=== PATIENT | female | born 1970 | race American Indian/Alaskan Native ===

== ENCOUNTER 2017-09-17 09:22 | Inpatient (IN) | payer MEDICAID ==
[2017-09-17 09:24] VITALS: BMI 23.5
--- NOTE | 2017-09-17 09:33 | C.PDOC ---
History Of Present Illness 47 y/o female brought to ED by EMS transferred from [place] for evaluation on depression and Suicidal ideation. Patient has no plan but has history of 2 suicidal attempts in past. Patient denies homicidal ideation or any other complaints at this time. Time Seen by Provider: 09/17/17 09:33 Chief Complaint (Nursing): Psychiatric Evaluation History Per: Patient, EMS History/Exam Limitations: no limitations Onset/Duration Of Symptoms: Days Current Symptoms Are (Timing): Still Present Suicide/Self Injury Attempted (Context): None Past Medical History Reviewed: Historical Data, Nursing Documentation, Vital Signs Vital Signs: Last Vital Signs Temp 98.1 F 09/18/17 06:32 Pulse 58 L 09/19/17 06:07 Resp 20 09/19/17 06:07 BP 98/54 L 09/19/17 06:07 Pulse Ox 98 09/19/17 06:07 - Medical History PMH: Anemia, Anxiety, Bipolar Disorder, Depression Surgical History: Cholecystectomy - [facility] Procedures MEDICATION MANAGEMENT (07/19/17) Family History: States: No Known Family Hx - Social History Hx Tobacco Use: Yes Hx Alcohol Use: Yes Hx Substance Use: Yes (off heroin/sniff x3 days) - Immunization History Hx Tetanus Toxoid Vaccination: No Hx Influenza Vaccination: No Hx Pneumococcal Vaccination: No Review Of Systems Except As Marked, All Systems Reviewed And Found Negative. Constitutional: Negative for: Fever, Chills Cardiovascular: Negative for: Chest Pain Gastrointestinal: Negative for: Nausea, Vomiting Skin: Negative for: Rash Psych: Positive for: Depression, Suicidal ideation Physical Exam - Physical Exam Appears: Non-toxic, No Acute Distress Skin: Warm, Dry, No Rash Head: Atraumatic, Normacephalic Oral Mucosa: Moist Neck: Normal ROM, Supple Cardiovascular: Rhythm Regular Respiratory: Normal Breath Sounds, No Rales, No Rhonchi, No Wheezing Gastrointestinal/Abdominal: Soft, No Tenderness, No Guarding, No Rebound Extremity: Normal ROM, Capillary Refill (<2 seconds) Neurological/Psych: Oriented x3 ED Course And Treatment O2 Sat by Pulse Oximetry: 98 (RA) Pulse Ox Interpretation: Normal Medical Decision Making Medical Decision Making: Plan: ED 1:1 ordered, Progress: Patient will be admitted to Dr. Riggs for schizoaffective disorder, opiate and cocaine use disorder Disposition - Disposition Disposition: HOSPITALIZED Disposition Time: 09:37 Condition: STABLE - Clinical Impression Clinical Impression: Schizoaffective disorder - Scribe Statement The provider has reviewed the documentation as recorded by the Delanoibasiya Garay All medical record entries made by the Delanoibasiya were at my direction and personally dictated by me. I have reviewed the chart and agree that the record accurately reflects my personal performance of the history, physical exam, medical decision making, and the department course for this patient. I have also personally directed, reviewed, and agree with the discharge instructions and disposition.
--- NOTE | 2017-09-17 10:34 | PCM.PSYCH ---
Initial Psychiatric Evaluation - Initial Psychiatric Evaluation Type of Admission: Voluntary Legal Status: Capacity Chief Complaint (in patient's own words): I was feeling depressed and suicidal.' History of Present Illness and Precipitating Events: Pt is a 47 year old AAF, currently lives alone and unemployed, came to the ED for depressed mood and suicidal ideation. Pt states history of psychiatric admissions at [facility], for depression and suicidal ideation, last discharged 7 months ago. Pt denies any h/o follow up with any psychiatrist after discharged. She denies any previous suicide attempts in the past, but states that the suicidal thoughts were prompted yesterday. Patient also reports of abusing almost 8-10 bags of heroin daily. Yesterday she abused almost 9 bags, became increasingly depressed and developed suicidal ideation so went to the [facility]. Today pt was transferred to the to get help. She reports depressed mood and feelings of hopelessness and worthlessness. She reports withdrawal symptoms from heroin, including nausea, cramps, anxiety, headaches and joint pains. Pt remained isolated and withdrawn in the unit. She denies any HI. She also denies any AVH or any delusions. PMH: HTN Past Psychiatric History - Past Psychiatric History Previous Treatment History: Inpatient Pertinent Medical Hx (Current Medical&Sleep Prob, Allergies): Allergies Allergy/AdvReac Type Severity Reaction Status Date / Time Penicillins AdvReac RASH Verified 09/17/17 00:05 Unobtainable 09/17/17 Review of Systems - Review of Systems All systems: reviewed and no additional remarkable complaints except - Psychiatric Psychiatric: Anxiety, Difficulty Concentrating, Irritability, Suicidal Ideation Mental Status Examination - Personal Presentation Personal Presentation: Looks stated age - Affect Affect: Constricted, Depressed - Motor Activity Motor Activity: Calm - Reliability in Providing Information Reliability in Providing Information: Good - Speech Speech: Organized - Mood Mood: Depressed, Anxious - Formal Thought Process Formal Thought Process: No Impairment - Obsessions/Compulsions Obsessions: No Compulsions: No - Cognitive Functions Orientation: Person, Place, Situation, Time Sensorium: Alert Attention/Concentration: Attentive Abstract Thinking: [place] Estimate of Intelligence: Below average Judgement: Imparied, as evidence by: Poor judgement, Imparied, as evidence by: Lack of insight into illness - Risk Risk: Suicidal, Withdrawal, Diminished functioning - Strength & Assets Inventory Strength & Assets Inventory: Intelligence - Limitations Limitations: Living alone DSM 5 DX - DSM 5 DSM 5 Diagnosis: Major depressive disorder recurrent severe without psychotic features Opioid use disorder severe Opioid withdrawal - Recommended/Plan of Treatment Treatment Recommendations and Plan of Treatment: Major depressive disorder recurrent severe without psychotic features CBT Psychoeducation Supportive therapy, group therapy, individual therapy Paxil 10 mg PO Daily Seroquel 100 mg PO QHS Neurontin 100 mg by mouth 3 times a day Opioid use disorder severe CBT Psychoeducation Supportive therapy, individual therapy Use [place] for abstinence Opioid withdrawal CBT Psychoeducation Supportive therapy, individual therapy Clonidine when necessary Methadone taper - Smoking Cessation Smoking Cessation Initiated: No
--- NOTE | 2017-09-17 13:57 | PCM.BM ---
<Mel Gan - Last Filed: 09/17/17 13:54> Treatment Plan Problems - Problems identified on initial assessmt Depression Date Initiated: 09/17/17 Time Initiated: 10:00 Assessment reference: NA Status: Active Substance Abuse Date Initiated: 09/17/17 Time Initiated: 10:00 Assessment reference: NA Status: Active Treatment assets and liabiliti Patient Assests: adapts well (Chronic, Anemia), cooperative, self-reliant, ADL independent, negotiates basic needs, cognitively intact, good interpersonal skills Patient Liabilities: live alone, financial problems, substance abuse (Heroin) - Milieu Protocol Maintain good personal hygiene: daily Encourage regular showers, daily Remind patient to perform daily oral care, daily Assist patient to perform ADL's (Self) , other Assist patient to perform ADL's Maintain personal safety: every shift Educate patient to report safety concerns to staff, every shift Monitor environment for contraband/sharps Medication safety: Monitor for expected outcome, potential side effects: every shift, Assess barriers to learning: every shift, Assess readiness for medication education: every shift <Dennise Brown - Last Filed: 09/18/17 10:57> - Diagnosis (1) Depression Status: Acute Interventions: 09/18/17 10:58 * Assess/adjust medications daily and /or as needed * See patient on an individual basis 7x/week to assess symptoms of depression * Monitor for side effects & effectiveness of medications * (2) Opioid use disorder, severe, dependence Status: Acute Interventions: 09/18/17 10:58 * Assess 7x/week regarding severity of withdrawal * Educate regarding risks, benefits, side effects and alternatives of medications * Use Motivational Interviewing for abstinence * Use CBT for relapse prevention * Medication management for withdrawal symptoms * Encourage medication assisted treatment * <Mariah León - Last Filed: 09/18/17 11:11> Family Contact Family involvement: Famliy/SO not involved - Goals for Treatment Patient goals for treatment: "I'm interested in rehab." Discharge/Continuing Care - Education Needs Education Needs: Patient Medication, Patient Coping Skills, Patient Placement options, Patient Community resources - Discharge Discharge Criteria: Tolerates medication w/o severe side effects, No longer exhibiting s/s of withdrawal, Reduction of target symptoms Discharge to:: Substance Abuse Rehab - Treatment Team Participation Discussed with Family/SO: No Was Patient/Family/SO present at Treatment Team Meeting: Yes
--- NOTE | 2017-09-18 10:57 | PCM.PYCHPN ---
Psychiatric Progress Note - Psychiatric Progress Note Patient seen today, length of contact: [phone] Patient Chief Complaint: I was feeling depressed and suicidal.' Problems Identified/Issues Discussed: Patient seen and evaluated, chart reviewed and discussed with the nurse. As per the staff, patient still appears isolated, depressed and withdrawn. Patient still reports depressed mood and reports at times feelings of hopelessness or helplessness. She reports withdrawal symptoms including cramps, back pain and sweating. She denies any auditory or visual hallucinations or any psychotic symptoms. She needs some more time for stabilization. She is compliant with her medications and denies any side effects. Supportive therapy and psychoeducation were given. Medication Change: Yes (methadone taper) Medical Record Reviewed: Yes Mental Status Examination - Cognitive Function Orientation: Person, Place, Situation, Time Memory: Intact Attention: WNL Concentration: Poor Association: WNL Fund of Knowledge: Poor - Mood Mood: Depressed, Anxious - Affect Affect: Constricted, Depressed - Speech Speech: Soft - Formal Thought Process Formal Thought Process: No Impairment - Suicidal Ideation Suicidal Ideation: No - Homicidal Ideation Homicidal Ideation: No Goal/Treatment Plan - Goal/Treatment Plan Need for Continued Stay: Severe depression anxiety, Severe functional impairment Progress Toward Problem(s) and Goals/Treatment Plan: Major depressive disorder recurrent severe without psychotic features CBT Psychoeducation Supportive therapy, group therapy, individual therapy Paxil 10 mg PO Daily Seroquel 100 mg PO QHS Neurontin 100 mg by mouth 3 times a day Opioid use disorder severe CBT Psychoeducation Supportive therapy, individual therapy Use [place] for abstinence Opioid withdrawal CBT Psychoeducation Supportive therapy, individual therapy Clonidine when necessary Methadone taper - Smoking Cessation Smoking Cessation Initiated: No
[2017-09-18] MEDS ORDERED: Aluminum Hydroxide/Magnesium Hydroxide Susp (30 mL) PO PRN (11:11)
--- NOTE | 2017-09-19 17:40 | PCM.PYCHPN ---
Psychiatric Progress Note - Psychiatric Progress Note Patient seen today, length of contact: 15 min Medication Change: Yes (methadone taper) Medical Record Reviewed: Yes Mental Status Examination - Cognitive Function Orientation: Person, Place, Situation, Time Memory: Intact Attention: WNL Concentration: Poor Association: WNL Fund of Knowledge: Poor - Mood Mood: Depressed, Anxious - Affect Affect: Constricted, Depressed - Speech Speech: Soft - Formal Thought Process Formal Thought Process: No Impairment - Suicidal Ideation Suicidal Ideation: No - Homicidal Ideation Homicidal Ideation: No Goal/Treatment Plan - Goal/Treatment Plan Need for Continued Stay: Severe depression anxiety, Severe functional impairment
[2017-09-21 06:18] VITALS: BP 99/50; PULSE 79; RESP 20; TEMP 98.3; O2SAT 100
--- NOTE | 2017-09-21 10:10 | PCM.PYCHDC ---
Mental Status Examination - Mental Status Examination Orientation: Person, Place, Situation, Time Memory: Intact Mood: Neutral Affect: Constricted Speech: Soft Attention: WNL Concentration: WNL Association: WNL Fund of Knowledge: WNL Formal Thought Process: No Impairment Description of patient's judgement and insight: GOOD, FAIR Psychotic Thoughts and Behaviors: Denies any AVH Suicidal Ideation: No Current Homicidal Ideation?: No Discharge Summary - Discharge Note Reason for Hospitalization: Pt is a 47 year old AAF, currently lives alone and unemployed, came to the ED for depressed mood and suicidal ideation. Pt states history of psychiatric admissions at [facility], for depression and suicidal ideation, last discharged 7 months ago. Pt denies any h/o follow up with any psychiatrist after discharged. She denies any previous suicide attempts in the past, but states that the suicidal thoughts were prompted yesterday. Patient also reports of abusing almost 8-10 bags of heroin daily. Yesterday she abused almost 9 bags, became increasingly depressed and developed suicidal ideation so went to the [facility]. Today pt was transferred to the to get help. She reports depressed mood and feelings of hopelessness and worthlessness. She reports withdrawal symptoms from heroin, including nausea, cramps, anxiety, headaches and joint pains. Pt remained isolated and withdrawn in the unit. She denies any HI. She also denies any AVH or any delusions. Consultations:: List each consultation separately and include: 1. Reason for request. 2. Findings. 3. Follow-up Summary of Hospital Course include:: 1. Description of specific treatment plan utilized for patients during their course of treatmen. 2. Summarize the time- course for resolution of acute symptoms and/or regressed behaviors. 3. Describe issues identified and worked on during hospitalization. 4. Describe medication utilized. 5. Describe medical problems identified and treated. 6. Reassessment of suicide risk Summary of Hospital Course: Pt is a 47 year old AAF, currently lives alone and unemployed, came to the ED for depressed mood and suicidal ideation. Pt states history of psychiatric admissions at [facility], for depression and suicidal ideation, last discharged 7 months ago. Pt denies any h/o follow up with any psychiatrist after discharged. She denies any previous suicide attempts in the past, but states that the suicidal thoughts were prompted yesterday. Patient also reports of abusing almost 8-10 bags of heroin daily. Yesterday she abused almost 9 bags, became increasingly depressed and developed suicidal ideation so went to the [facility]. Today pt was transferred to the to get help. She reports depressed mood and feelings of hopelessness and worthlessness. She reports withdrawal symptoms from heroin, including nausea, cramps, anxiety, headaches and joint pains. Pt remained isolated and withdrawn in the unit. She denies any HI. She also denies any AVH or any delusions. PMH: HTN - Diagnosis (1) Depression Current Visit: No Status: Acute (2) Opioid use disorder, severe, dependence Current Visit: Yes Status: Acute - Final Diagnosis (DSM 5) Condition upon Discharge: STABLE DSM 5: Major depressive disorder recurrent severe without psychotic features Opioid use disorder severe Opioid withdrawal Disposition: HOME/ ROUTINE Follow-up Treatment Plan: Major depressive disorder recurrent severe without psychotic features CBT Psychoeducation Supportive therapy, group therapy, individual therapy Paxil 10 mg PO Daily Seroquel 100 mg PO QHS Neurontin 100 mg by mouth 3 times a day Opioid use disorder severe CBT Psychoeducation Supportive therapy, individual therapy Use [place] for abstinence Opioid withdrawal CBT Psychoeducation Supportive therapy, individual therapy Clonidine when necessary Methadone taper Prescriptions/Medication Reconciliation: Gabapentin [Neurontin] 300 mg PO BID #60 cap PARoxetine [Paxil] 20 mg PO DAILY #30 tab QUEtiapine [SEROquel] 200 mg PO HS #30 tab traZODone [Desyrel] 100 mg PO HS #30 tab - Smoking Cessation Smoking Cessation Medication prescribed: No
== END 2017-09-21 11:20 | disposition home or self-care (01) | DRG 430 ==
LOC: C.ER 09:22 → C.5E 09:37
PROVIDERS: ADMIT Psychiatry & Neurology Psychiatry; ATTEND Psychiatry & Neurology Psychiatry
PROC: HZ2ZZZZ Detoxification Services for Substance Abuse Treatment (ICD-10-PCS; principal; 2017-09-17)
PROC: HZ52ZZZ Individual Psychotherapy for Substance Abuse Treatment, Cognitive-Behavioral (ICD-10-PCS; 2017-09-17)
PROC: HZ59ZZZ Individual Psychotherapy for Substance Abuse Treatment, Supportive (ICD-10-PCS; 2017-09-17)
PROC: HZ56ZZZ Individual Psychotherapy for Substance Abuse Treatment, Psychoeducation (ICD-10-PCS; 2017-09-17)
PROC: HZ42ZZZ Group Counseling for Substance Abuse Treatment, Cognitive-Behavioral (ICD-10-PCS; 2017-09-17)
PROC: HZ46ZZZ Group Counseling for Substance Abuse Treatment, Psychoeducation (ICD-10-PCS; 2017-09-17)
DX: F33.2 Major depressive disorder, recurrent severe without psychotic features (principal); R45.851 Suicidal ideations; F25.9 Schizoaffective disorder, unspecified; F11.23 Opioid dependence with withdrawal; F14.90 Cocaine use, unspecified, uncomplicated; F17.210 Nicotine dependence, cigarettes, uncomplicated; F41.9 Anxiety disorder, unspecified; I10 Essential (primary) hypertension; Z90.49 Acquired absence of other specified parts of digestive tract

== ENCOUNTER 2017-11-30 01:24 | Inpatient (IN) | payer MEDICAID ==
[2017-11-30 01:25] VITALS: BMI 23.5
--- NOTE | 2017-11-30 01:53 | C.PDOC ---
History Of Present Illness 47 y/o female presents to the ED complaining of feeling suicidal for a few days. No plan. Admits to having auditory and visual hallucinations. Patient stopped taking her psychiatric meds 4 days ago. Patient also states she recently resumed using cocaine and heroin for the first time in 1 year. Denies any physical complaints. Time Seen by Provider: 11/30/17 01:40 Chief Complaint (Nursing): Psychiatric Evaluation History Per: Patient History/Exam Limitations: no limitations Onset/Duration Of Symptoms: Days Current Symptoms Are (Timing): Still Present Associated Symptoms: Suicidal Thoughts Past Medical History Reviewed: Historical Data, Nursing Documentation, Vital Signs Vital Signs: Last Vital Signs Temp 98 F 11/30/17 03:31 Pulse 68 11/30/17 03:31 Resp 18 11/30/17 03:31 BP 102/59 L 11/30/17 03:31 Pulse Ox 100 11/30/17 03:31 - Medical History PMH: Anemia, Anxiety, Asthma, Bipolar Disorder, Depression Denies: Diabetes, HIV, HTN, Hypercholesterolemia, Hypothyroidism Surgical History: Cholecystectomy Denies: CABG, Pacemaker - [facility] Procedures DETOXIFICATION SERVICES FOR SUBSTANCE ABUSE TREATMENT (09/17/17) GROUP PRODUCTION SAMPLER FOR SUBSTANCE ABUSE TREATMENT, PSYCHOEDUCATION (09/17/17) GROUP PRODUCTION SAMPLER FOR SUBSTANCE ABUSE, COGNITIVE BEHAVIORAL (09/17/17) INDIV PSYCHOTHERAPY FOR SUBSTANCE ABUSE TREATMENT, SUPPORT (09/17/17) INDIV PSYCHOTHERAPY FOR SUBSTANCE ABUSE, COGNITIV BEHAVIORAL (09/17/17) INDIV PSYCHOTHERAPY FOR SUBSTANCE ABUSE, PSYCHOEDUCATION (09/17/17) INTRODUCTION OF ANTI-INFLAMMATORY INTO JOINTS, PERC APPROACH (10/11/17) INTRODUCTION OF LOCAL ANESTHETIC INTO JOINTS, PERC APPROACH (10/11/17) MEDICATION MANAGEMENT (07/19/17) Family History: States: Unknown Family Hx - Social History Hx Tobacco Use: Yes Hx Alcohol Use: Yes Hx Substance Use: Yes - Immunization History Hx Tetanus Toxoid Vaccination: No Hx Influenza Vaccination: Yes Hx Pneumococcal Vaccination: No Review Of Systems Cardiovascular: Negative for: Chest Pain Respiratory: Negative for: Shortness of Breath Gastrointestinal: Negative for: Vomiting Psych: Positive for: Suicidal ideation (with no plan), Other (substance abuse, auditory and visual hallucinations) Physical Exam - Physical Exam Appears: No Acute Distress Skin: No Rash Head: Atraumatic, Normacephalic Eye(s): bilateral: PERRL, EOMI Oral Mucosa: Moist Neck: Supple Chest: No Tenderness Cardiovascular: Rhythm Regular, No Murmur Respiratory: No Rales, No Rhonchi, No Wheezing, Other (Lungs clear to auscultation) Gastrointestinal/Abdominal: Soft, No Tenderness, No Distention Back: No CVA Tenderness Extremity: No Calf Tenderness, No Swelling Neurological/Psych: Other (Awake and alert, poor eye contact) ED Course And Treatment - Laboratory Results Result Diagrams: 11/30/17 02:04 11/30/17 02:04 Medical Decision Making Medical Decision Making: Time: 1:40 Initial Plan: * Urine drug screen * Alcohol serum * CMP * CBC * Accucheck * Urinalysis * Placed on 1:1 observation * Pending crisis evaluation 32 am pt is medically cleared for psychiatric evaluation/admission. pt with mildly elevated ast and alt. recommend repeat and get hep profile. Disposition Discussed With : Dennise Brown Doctor Will See Patient In The: Hospital - Disposition Referrals: Non [facility] Provider, [Primary Care Provider] - Disposition: HOSPITALIZED Disposition Time: 03:33 Condition: FAIR Forms: [employer] (Hungarian) - Clinical Impression Clinical Impression: Major depressive disorder, recurrent, Opioid use disorder, moderate, dependence , Cocaine use disorder, moderate, dependence - PA / BROKE BEATER / Resident Statement MD/DO has reviewed & agrees with the documentation as recorded. - Scribe Statement The provider has reviewed the documentation as recorded by the Scribe (Amelia Clark) All medical record entries made by the Scribe were at my direction and personally dictated by me. I have reviewed the chart and agree that the record accurately reflects my personal performance of the history, physical exam, medical decision making, and the department course for this patient. I have also personally directed, reviewed, and agree with the discharge instructions and disposition.
[2017-11-30 01:57] LABS: HCG,QUALITATIVE URINE NEGATIVE (NEGATIVE); SQUAMOUS EPITHIAL 10 /hpf (0-5); URINE BILIRUBIN NEGATIVE (NEGATIVE); URINE BLOOD NEGATIVE (NEGATIVE); URINE CLARITY Hazy (Clear); URINE COLOR Yellow (YELLOW); URINE GLUCOSE (UA) NORMAL (Normal); URINE HYALINE CAST 0-2 /lpf (0-2); URINE LEUKOCYTE ESTERASE NEG Leu/uL (Negative); URINE PROTEIN 1+ mg/dL (NEGATIVE)
[2017-11-30 02:20] LABS: BASO % 0.6 % (0.0-2.0); EOS # 0.1 K/uL (0.0-0.7); EOS % 0.9 % (0.0-4.0); HEMOGLOBIN 12.2 g/dL (11.0-16.0); LYMPH # 1.7 K/uL (1.0-4.3); LYMPH % 25.2 % (20.0-40.0); MEAN CELL VOLUME 87.9 fL (81.0-99.0); MEAN CORPUSCULAR HEMOGLOBIN 30.4 pg (27.0-31.0); MEAN CORPUSCULAR HGB CONC 34.6 g/dL (33.0-37.0); MEAN PLATELET VOLUME 8.9 fL (7.2-11.7); MONO # 0.6 K/uL (0.0-0.8); MONO % 8.7 % (0.0-10.0); NEUT # 4.3 K/uL (1.8-7.0); NEUT % 64.6 % (50.0-75.0); RBC 4.02 Mil/uL (3.80-5.20); RED CELL DISTRIBUTION WIDTH 15.1 % (11.5-14.5); WHITE BLOOD COUNT 6.6 K/uL (4.8-10.8)
[2017-11-30 02:26] LABS: ALB/GLOB RATIO 1.1 (1.0-2.1); ALBUMIN 4.2 g/dL (3.5-5.0); ALT/SGPT 163 U/L (9-52); AST/SGOT 166 U/L (14-36); BLOOD UREA NITROGEN 11 mg/dL (7-17); CALCIUM 9.3 mg/dl (8.6-10.4); GFR AFRICAN-AMERICAN > 60; GFR NON-AFRICAN AMERICAN > 60
[2017-11-30 02:35] LABS: BARBITURATES, UR NEGATIVE (NEGATIVE); PHENCYCLIDINE, UR NEGATIVE (NEGATIVE)
[2017-11-30 02:39] LABS: BENZODIAZEPINES, UR POSITIVE (NEGATIVE); OPIATES, UR POSITIVE (NEGATIVE)
[2017-11-30] MEDS ORDERED: Potassium Chloride 20 mEq ER Tab PO ONE ×2 (02:56)
--- NOTE | 2017-11-30 05:12 | PCM.BM ---
<Yessi Bourne - Last Filed: 11/30/17 05:10> Treatment Plan Problems - Problems identified on initial assessmt Depression Date Initiated: 11/30/17 Time Initiated: 03:50 Assessment reference: NA Status: Active Suicidal ideation Date Initiated: 11/30/17 Time Initiated: 03:50 Assessment reference: NA Status: Monitor Treatment assets and liabiliti Patient Assests: adapts well (Chronic, Anemia), cooperative, self-reliant, ADL independent, negotiates basic needs, cognitively intact, good interpersonal skills Patient Liabilities: poor support system, substance abuse (Heroin, cocaine, benzo), medical problems (Anemia) - Milieu Protocol Maintain good personal hygiene: daily Encourage regular showers, daily Remind patient to perform daily oral care, every shift Assist patient to perform ADL's Conduct patient checks and document Observation sheet: Q15 minutes Maintain personal safety: every shift Educate patient to report safety concerns to staff, every shift Monitor environment for contraband/sharps Medication safety: Monitor for expected outcome, potential side effects: every shift, Assess barriers to learning: every shift, Assess readiness for medication education: every shift <Sheree Trejo - Last Filed: 11/30/17 12:31> - Diagnosis (1) Opioid use disorder, severe, dependence Status: Acute Interventions: 11/30/17 12:31 * Assess 7x/week regarding severity of withdrawal * Educate regarding risks, benefits, side effects and alternatives of medications * Use Motivational Interviewing for abstinence * Use CBT for relapse prevention * Medication management for withdrawal symptoms * Encourage medication assisted treatment * (2) Schizoaffective disorder Status: Chronic Interventions: 11/30/17 12:31 * Assess/adjust medications daily and /or as needed * See patient on an individual basis 7x/week to assess status of hallucinations * Discuss risks, benefits, side effects and alternatives of medications * <Melisa Art - Last Filed: 11/30/17 12:36> Family Contact Family involvement: Patient does not wish Family/SO involvement Family contact: Patient declines to allow family contact at present - Goals for Treatment Patient goals for treatment: " I am going through withdrawals and I want to stop using drugs". Discharge/Continuing Care - Education Needs Education Needs: Patient Medication, Patient Diagnosis/Disease Process, Patient Coping Skills, Patient Aftercare Safety Plan - Discharge Discharge Criteria: Free of Suicidal thoughts, Ability to care for self, No longer exhibiting s/s of withdrawal, Reduction of target symptoms Discharge to:: [facility]
[2017-11-30 06:52] VITALS: O2SAT 95
[2017-11-30] MEDS ORDERED: Potassium Chloride 20 mEq ER Tab PO SCH (10:00)
[2017-11-30] MEDS: Multiple Vitamins Tab PO SCH (13:45)
--- NOTE | 2017-11-30 14:02 | PCM.PSYCH ---
Initial Psychiatric Evaluation - Initial Psychiatric Evaluation Type of Admission: Voluntary Legal Status: Capacity Chief Complaint (in patient's own words): "I was feeling depressed and suicidal." History of Present Illness and Precipitating Events: Patient is seen, chart reviewed, case discussed. This is a 47 year old AA female, currently lives alone and is unemployed, came to the ED for feeling depressed and suicidal ideation. Patient states she has been feeling this way for the past week. Patient states she has not taken her medication for about a week. Patient states she has been hearing the voice of her grandmother, telling her to come join her. Patient denies any recent attempt of suicide. Patient denies feelings of paranoia. Patient states she has a past history of heroin use and recently relapsed on Thursday11/27/2017 despite completing a detox recently. Patient was using 5-6 bags of heroin per day. She states she currently has symptoms of withdrawal. She was also using 2-3 mg klonopin a day. Denies heavy alcohol use but she has elevated LFTs Patient has history of previous psychiatric admissions in the past at [facility] and [facility] for depression and suicidal ideation. Patient was last discharged 10/23/2017. Patient states she has attempted suicide in the past , twice in 2016, but denies any recent attempts Past psych history: Opiod use d/o, Schizoaffective d/o, Major Depressive Disorder, recurrent Medical history: denies Family History: denies Current Medications: Active Medications Generic Name Dose Route Start Last Admin Trade Name Freq PRN Reason Stop Dose Admin Aripiprazole 5 mg 11/30/17 18:00 Abilify PO QPM JOAQUÍN Clonidine HCl 0.1 mg 11/30/17 12:33 Catapres PO Q4H PRN Symptoms of alcohol withdrawl Folic Acid 1 mg 11/30/17 12:45 11/30/17 13:45 Folic Acid PO 1 mg DAILY JOAQUÍN Administration Gabapentin 300 mg 11/30/17 14:00 11/30/17 13:33 Neurontin PO 300 mg TID JOAQUÍN Administration Hydroxyzine HCl 25 mg 11/30/17 12:28 Atarax PO Q4H PRN Anxiety Ibuprofen 600 mg 11/30/17 12:28 Motrin Tab PO Q6H PRN Pain, moderate (4-7) Lorazepam 1 mg 11/30/17 14:00 11/30/17 13:33 Ativan PO 12/05/17 13:59 1 mg .TAPER JOAQUÍN Administration Taper Multivitamins 1 tab 11/30/17 12:45 11/30/17 13:45 Hexavitamin PO 1 tab DAILY JOAQUÍN Administration Pneumococcal Polyvalent Vaccine 0.5 ml 12/02/17 10:00 Pneumovax 23 Vaccine IM 12/02/17 10:01 .ONCE ONE Thiamine HCl 100 mg 11/30/17 12:45 11/30/17 13:33 Vitamin B1 Tab PO 100 mg DAILY JOAQUÍN Administration Trazodone HCl 50 mg 11/30/17 12:28 Desyrel PO HS PRN Insomnia Past Psychiatric History - Past Psychiatric History Previous Treatment History: Inpatient At [facility] hospital: [facility] Nature of Treatment: Depression, Sucidial Ideation History of ETOH/Drug Use: Opiod Use d/o History of Family Illness: Denies Pertinent Medical Hx (Current Medical&Sleep Prob, Allergies): Allergies Allergy/AdvReac Type Severity Reaction Status Date / Time Penicillins AdvReac RASH Verified 11/30/17 01:32 Docusate [Colace] 100 mg PO BID #14 cap 10/22/17 Gabapentin [Neurontin] 600 mg PO TID #45 tab 10/22/17 QUEtiapine [Seroquel] 300 mg PO AMHS #30 tab 10/22/17 traZODone [Desyrel] 200 mg PO HS #30 tab 10/22/17 Review of Systems - Review of Systems All systems: reviewed and no additional remarkable complaints except - Psychiatric Psychiatric: Auditory Hallucinations, Depression, Hopelessness, Suicidal Ideation. absent: Paranoia Mental Status Examination - Personal Presentation Personal Presentation: Looks stated age - Affect Affect: Flat - Motor Activity Motor Activity: Calm - Reliability in Providing Information Reliability in Providing Information: Fair - Speech Speech: Organized - Mood Mood: Depressed - Formal Thought Process Formal Thought Process: No Impairment - Obsessions/Compulsions Obsessions: No Compulsions: No - Cognitive Functions Orientation: Person, Place, Situation Sensorium: Alert - Risk Risk: Suicidal, Withdrawal - Limitations Limitations: Living alone DSM 5 DX - DSM 5 DSM 5 Diagnosis: Schizoaffective d/o - depressed Opiod Use d/o, severe Opioid withdrawal Cocaine use d/o - severe r/o Benzo (or alcohol) use d/o - Recommended/Plan of Treatment Treatment Recommendations and Plan of Treatment: Start Abilify 5mg for psychosis Lexapro for depression Hold seroquel Gabapentin Ok for anxiety Methadone detox Short low dose ativan detox All risks, benefits, and alternatives of the meds discussed, and the pt agreed and understood. Attend groups and activities Individual therapy daily Psychoeducation and support daily Encourage compliance with meds and after care Refer to outpatient program Teach healthy lifestyle methods, i.e. diet, exercise, meditation Smoking cessation and patch 32 min Projected ELOS: 7 days - Smoking Cessation Smoking Cessation Initiated: Yes
[2017-11-30 14:24] LABS: ALB/GLOB RATIO 1.1 (1.0-2.1); ALBUMIN 3.8 g/dL (3.5-5.0); ALT/SGPT 123 U/L (9-52); AST/SGOT 108 U/L (14-36); BLOOD UREA NITROGEN 11 mg/dL (7-17); GFR AFRICAN-AMERICAN > 60; GFR NON-AFRICAN AMERICAN > 60
[2017-11-30 15:14] LABS: HEPATITIS B SURFACE AG Negative (NEGATIVE)
[2017-11-30 15:20] LABS: HEPATITIS A IGM NEGATIVE (NEGATIVE); HEPATITIS B CORE AB NEGATIVE (NEGATIVE)
[2017-11-30 15:24] LABS: HEPATITIS C ANTIBODY NEGATIVE (NEGATIVE)
[2017-12-01] MEDS: Multiple Vitamins Tab PO SCH (10:06)
--- NOTE | 2017-12-01 13:56 | PCM.PYCHPN ---
Psychiatric Progress Note - Psychiatric Progress Note Patient seen today, length of contact: 17 minutes Patient Chief Complaint: "I am not well" Problems Identified/Issues Discussed: The patient is seen, chart reviewed, case discussed with staff. Support given, CBT and CA used briefly. Patient states she is still not sleeping well. No new symptoms reported, improving slowly and needs more time. No side effects from medications, risk discussed. After care discussed. Medication Change: Yes (sero) Medical Record Reviewed: Yes Mental Status Examination - Cognitive Function Orientation: Person, Place, Situation, Time Memory: Intact Attention: Poor Concentration: Poor Association: WNL Fund of Knowledge: Poor - Mood Mood: Depressed - Affect Affect: Flat - Speech Speech: Appropriate - Formal Thought Process Formal Thought Process: No Impairment - Suicidal Ideation Suicidal Ideation: No - Homicidal Ideation Homicidal Ideation: No Goal/Treatment Plan - Goal/Treatment Plan Need for Continued Stay: Discharge may exacerbated symptoms, Severe functional impairment Progress Toward Problem(s) and Goals/Treatment Plan: Abilify 5mg for psychosis Lexapro for depression Hold seroquel Gabapentin Ok for anxiety Methadone detox Short low dose ativan detox All risks, benefits, and alternatives of the meds discussed, and the pt agreed and understood. Attend groups and activities Individual therapy daily Psychoeducation and support daily Encourage compliance with meds and after care Refer to outpatient program Teach healthy lifestyle methods, i.e. diet, exercise, meditation Smoking cessation and patch
[2017-12-02] MEDS ORDERED: Pneumococcal 23-Valent Vaccine IM ONE (10:00)
[2017-12-02] MEDS: Multiple Vitamins Tab PO SCH (10:16)
--- NOTE | 2017-12-02 14:25 | PCM.PYCHPN ---
Psychiatric Progress Note - Psychiatric Progress Note Patient seen today, length of contact: 16 min Patient Chief Complaint: "I am not sleeping well" Problems Identified/Issues Discussed: The patient is seen, chart reviewed, case discussed with staff. Patient states she is still not sleeping well. Her mood has improved. Support given, CBT and [place] used briefly. Patient states she is still not sleeping well. No new symptoms reported, improving slowly and needs more time. No side effects from medications, risk discussed. After care discussed. Methadone main. recommended and she agreed Medication Change: Yes Medical Record Reviewed: Yes Mental Status Examination - Cognitive Function Orientation: Person, Place, Situation Memory: Impaired Attention: Poor Concentration: Poor Association: WNL Fund of Knowledge: Poor - Mood Mood: Depressed - Affect Affect: Blunted - Speech Speech: Appropriate - Formal Thought Process Formal Thought Process: No Impairment - Suicidal Ideation Suicidal Ideation: No - Homicidal Ideation Homicidal Ideation: No Goal/Treatment Plan - Goal/Treatment Plan Need for Continued Stay: Discharge may exacerbated symptoms, Severe functional impairment Progress Toward Problem(s) and Goals/Treatment Plan: Continue medications Support and psychoeducation daily Attend groups and activities daily After care planning by POPPY
[2017-12-03 06:26] VITALS: RESP 20; TEMP 98.3
[2017-12-03] MEDS: Multiple Vitamins Tab PO SCH (09:49)
[2017-12-03 10:22] VITALS: BP 118/70; PULSE 81
--- NOTE | 2017-12-03 10:45 | PCM.PYCHDC ---
Mental Status Examination - Mental Status Examination Orientation: Person, Place, Situation, Time Memory: Intact Mood: Neutral Affect: Constricted Speech: Soft Attention: WNL Concentration: WNL Association: WNL Fund of Knowledge: WNL Formal Thought Process: No Impairment Description of patient's judgement and insight: good, fair Psychotic Thoughts and Behaviors: denies any AVH Suicidal Ideation: No Current Homicidal Ideation?: No Discharge Summary - Discharge Note Reason for Hospitalization: This is a 47 year old AA female, currently lives alone and is unemployed, came to the ED for feeling depressed and suicidal ideation. Patient states she has been feeling this way for the past week. Patient states she has not taken her medication for about a week. Patient states she has been hearing the voice of her grandmother, telling her to come join her. Patient denies any recent attempt of suicide. Patient denies feelings of paranoia. Patient states she has a past history of heroin use and recently relapsed on Thursday11/27/2017 despite completing a detox recently. Patient was using 5-6 bags of heroin per day. She states she currently has symptoms of withdrawal. She was also using 2-3 mg klonopin a day. Denies heavy alcohol use but she has elevated LFTs Patient has history of previous psychiatric admissions in the past at [facility] and [facility] for depression and suicidal ideation. Patient was last discharged 10/23/2017. Patient states she has attempted suicide in the past , twice in 2016, but denies any recent attempts Past psych history: Opiod use d/o, Schizoaffective d/o, Major Depressive Disorder, recurrent Medical history: denies Family History: denies Psychiatric History (includes Medical, Family, Personal Hx): Depression, Sucidial Ideation Consultations:: List each consultation separately and include: 1. Reason for request. 2. Findings. 3. Follow-up Summary of Hospital Course include:: 1. Description of specific treatment plan utilized for patients during their course of treatmen. 2. Summarize the time- course for resolution of acute symptoms and/or regressed behaviors. 3. Describe issues identified and worked on during hospitalization. 4. Describe medication utilized. 5. Describe medical problems identified and treated. 6. Reassessment of suicide risk - Final Diagnosis (DSM 5) Condition upon Discharge: FAIR DSM 5: Schizoaffective d/o - depressed Opiod Use d/o, severe Opioid withdrawal Cocaine use d/o - severe r/o Benzo (or alcohol) use d/o Disposition: HOME/ ROUTINE Prescriptions/Medication Reconciliation: ARIPiprazole [Abilify] 10 mg PO QPM #30 tab FLUoxetine [Prozac] 20 mg PO DAILY #30 cap Gabapentin [Neurontin] 300 mg PO TID #90 cap QUEtiapine [Seroquel] 100 mg PO HS #30 tab traZODone [Desyrel] 100 mg PO HS PRN #30 tab PRN Reason: Insomnia
== END 2017-12-03 11:00 | disposition home or self-care (01) | DRG 430 ==
LOC: C.ER 01:24 → SUPCPDRO 01:24 → C.5E 03:30
PROVIDERS: ADMIT Psychiatry & Neurology Psychiatry; ATTEND Psychiatry & Neurology Psychiatry
PROC: GZHZZZZ Group Psychotherapy (ICD-10-PCS; principal; 2017-11-30)
PROC: HZ52ZZZ Individual Psychotherapy for Substance Abuse Treatment, Cognitive-Behavioral (ICD-10-PCS; 2017-11-30)
PROC: GZ58ZZZ Individual Psychotherapy, Cognitive-Behavioral (ICD-10-PCS; 2017-11-30)
PROC: GZ56ZZZ Individual Psychotherapy, Supportive (ICD-10-PCS; 2017-11-30)
PROC: HZ2ZZZZ Detoxification Services for Substance Abuse Treatment (ICD-10-PCS; 2017-11-30)
PROC: HZ59ZZZ Individual Psychotherapy for Substance Abuse Treatment, Supportive (ICD-10-PCS; 2017-11-30)
PROC: HZ56ZZZ Individual Psychotherapy for Substance Abuse Treatment, Psychoeducation (ICD-10-PCS; 2017-11-30)
PROC: HZ42ZZZ Group Counseling for Substance Abuse Treatment, Cognitive-Behavioral (ICD-10-PCS; 2017-11-30)
PROC: HZ46ZZZ Group Counseling for Substance Abuse Treatment, Psychoeducation (ICD-10-PCS; 2017-11-30)
DX: F25.1 Schizoaffective disorder, depressive type (principal); F11.23 Opioid dependence with withdrawal; F14.20 Cocaine dependence, uncomplicated; F41.9 Anxiety disorder, unspecified; J45.909 Unspecified asthma, uncomplicated; R45.851 Suicidal ideations; F17.210 Nicotine dependence, cigarettes, uncomplicated; Z88.0 Allergy status to penicillin

== ENCOUNTER 2018-02-07 22:44 | Inpatient (IN) | payer MEDICAID ==
[2018-02-07 22:44] VITALS: BMI 25.0
[2018-02-07 23:17] LABS: BASO # 0.1 K/uL (0.0-0.2); BASO % 0.9 % (0.0-2.0); EOS # 0.3 K/uL (0.0-0.7); EOS % 3.7 % (0.0-4.0); HEMOGLOBIN 12.4 g/dL (11.0-16.0); LYMPH # 2.6 K/uL (1.0-4.3); LYMPH % 33.6 % (20.0-40.0); MEAN CORPUSCULAR HEMOGLOBIN 30.7 pg (27.0-31.0); MEAN CORPUSCULAR HGB CONC 34.1 g/dL (33.0-37.0); MONO # 0.9 K/uL (0.0-0.8); MONO % 11.5 % (0.0-10.0); NEUT # 3.9 K/uL (1.8-7.0); NEUT % 50.3 % (50.0-75.0); NRBC % 0.1 % (0.0-2.0); RBC 4.03 Mil/uL (3.80-5.20); RED CELL DISTRIBUTION WIDTH 15.1 % (11.5-14.5); WHITE BLOOD COUNT 7.7 K/uL (4.8-10.8)
[2018-02-07 23:22] LABS: HCG,QUALITATIVE URINE NEGATIVE (NEGATIVE); SQUAMOUS EPITHIAL 4 /hpf (0-5); URINE BACTERIA OCC (<OCC); URINE BILIRUBIN NEGATIVE (NEGATIVE); URINE BLOOD NEGATIVE (NEGATIVE); URINE CLARITY Hazy (Clear); URINE COLOR Amber (YELLOW); URINE GLUCOSE (UA) NORMAL (Normal); URINE LEUKOCYTE ESTERASE NEG Leu/uL (Negative); URINE PROTEIN 1+ mg/dL (NEGATIVE)
[2018-02-07 23:23] LABS: BARBITURATES, UR NEGATIVE (NEGATIVE); PHENCYCLIDINE, UR NEGATIVE (NEGATIVE)
[2018-02-07 23:25] LABS: ALB/GLOB RATIO 1.1 (1.0-2.1); ALBUMIN 4.3 g/dL (3.5-5.0); ALT/SGPT 45 U/L (9-52); AST/SGOT 55 U/L (14-36); BLOOD UREA NITROGEN 13 mg/dL (7-17); CALCIUM 9.3 mg/dl (8.6-10.4); GFR AFRICAN-AMERICAN > 60; GFR NON-AFRICAN AMERICAN > 60
[2018-02-07 23:25] LABS: BENZODIAZEPINES, UR POSITIVE (NEGATIVE); OPIATES, UR POSITIVE (NEGATIVE)
--- NOTE | 2018-02-07 23:33 | C.PDOC ---
History Of Present Illness 47 year old female presents to the ER with a complaint of feeling depressed, suicidal, and hearing voices. Patient also notes she uses heroin and ETOH, last use was today. Denies any medical complaints at this time. Time Seen by Provider: 02/07/18 22:51 Chief Complaint (Nursing): Psychiatric Evaluation History Per: Patient History/Exam Limitations: no limitations Onset/Duration Of Symptoms: Hrs Current Symptoms Are (Timing): Still Present Suicide/Self Injury Attempted (Context): None Modifying Factor(s): Alcohol, Other (Heroin) Associated Symptoms: Depression, Suicidal Thoughts, Other (Hearing voices) Involuntary Hold By: None Recent travel outside of the [place]: No Past Medical History Reviewed: Historical Data, Nursing Documentation, Vital Signs Vital Signs: Last Vital Signs Temp 98.5 F 02/07/18 22:47 Pulse 94 H 02/07/18 22:47 Resp 18 02/07/18 22:47 BP 123/82 02/07/18 22:47 Pulse Ox 97 02/08/18 00:18 - Medical History PMH: Anemia, Anxiety, Asthma, Bipolar Disorder, Depression, HTN Surgical History: Cholecystectomy - [facility] Procedures DETOXIFICATION SERVICES FOR SUBSTANCE ABUSE TREATMENT (11/30/17) GROUP CONDITIONING COACH FOR SUBSTANCE ABUSE TREATMENT, PSYCHOEDUCATION (11/30/17) GROUP CONDITIONING COACH FOR SUBSTANCE ABUSE, COGNITIVE BEHAVIORAL (11/30/17) GROUP PSYCHOTHERAPY (01/26/18) INDIV PSYCHOTHERAPY FOR SUBSTANCE ABUSE TREATMENT, SUPPORT (11/30/17) INDIV PSYCHOTHERAPY FOR SUBSTANCE ABUSE, COGNITIV BEHAVIORAL (11/30/17) INDIV PSYCHOTHERAPY FOR SUBSTANCE ABUSE, PSYCHOEDUCATION (01/26/18) INDIVIDUAL PSYCHOTHERAPY, COGNITIVE-BEHAVIORAL (11/30/17) INDIVIDUAL PSYCHOTHERAPY, SUPPORTIVE (11/30/17) INTRODUCTION OF ANTI-INFLAMMATORY INTO JOINTS, PERC APPROACH (10/11/17) INTRODUCTION OF LOCAL ANESTHETIC INTO JOINTS, PERC APPROACH (10/11/17) INTRODUCTION OF SERUM/TOX/VACCINE INTO MUSCLE, PERC APPROACH (01/26/18) MEDICATION MANAGEMENT (07/19/17) Family History: States: Unknown Family Hx - Social History Hx Tobacco Use: Yes Hx Alcohol Use: Yes Hx Substance Use: Yes - Immunization History Hx Tetanus Toxoid Vaccination: No Hx Influenza Vaccination: Yes Hx Pneumococcal Vaccination: No Review Of Systems Except As Marked, All Systems Reviewed And Found Negative. Constitutional: Negative for: Fever, Chills Psych: Positive for: Depression, Suicidal ideation, Other (Hearing voices) Physical Exam - Physical Exam Additional Physical Exam Comments: Constitutional: No acute distress. Head: Normocephalic. Atraumatic. Eyes: PERRL. ENT: Moist mucous membranes. Neck: Supple. Cardiovascular: Regular rate. Radial pulse 2+ bilaterally. Chest: No tenderness. Respiratory: Clear to auscultation bilaterally. GI: Soft. Nontender. Nondistended. Back: No CVA tenderness. Musculoskeletal: No tenderness or swelling of extremities. Skin: No rash. Neurologic: Alert, no focal deficit. ED Course And Treatment - Laboratory Results Result Diagrams: 02/07/18 23:10 02/07/18 23:10 O2 Sat by Pulse Oximetry: 97 Medical Decision Making Medical Decision Making: Plan: * Blood work * Urinalysis * Crisis Medically clear, will sign out to ED night team pending Crisis evaluation. Disposition - Disposition Disposition Time: 00:18 Condition: STABLE Forms: [facility] (Japanese) - Clinical Impression Clinical Impression: Depression - Scribe Statement The provider has reviewed the documentation as recorded by the Scribasiya Gates All medical record entries made by the Delanoibasiya were at my direction and personally dictated by me. I have reviewed the chart and agree that the record accurately reflects my personal performance of the history, physical exam, medical decision making, and the department course for this patient. I have also personally directed, reviewed, and agree with the discharge instructions and disposition.
--- NOTE | 2018-02-08 02:16 | PCM.BM ---
<Sally Cantu - Last Filed: 02/08/18 02:13> Treatment assets and liabiliti Patient Assests: adapts well (Chronic, Anemia), cooperative, motivated, self- reliant, ADL independent, negotiates basic needs, cognitively intact, good interpersonal skills Patient Liabilities: financial problems, substance abuse (cocaine, heroin, shelly. ), legal issue (has Residential time) - Milieu Protocol Maintain good personal hygiene: daily Encourage regular showers, every shift Remind patient to perform daily oral care, every shift Assist patient to perform ADL's Conduct patient checks and document Observation sheet: Q15 minutes Maintain personal safety: every shift Educate patient to report safety concerns to staff, every shift Monitor environment for contraband/sharps Medication safety: Monitor for expected outcome, potential side effects: every shift, Assess barriers to learning: every shift, Assess readiness for medication education: every shift <Dennise Brown - Last Filed: 02/08/18 11:29> - Diagnosis (1) Schizoaffective disorder Status: Chronic Interventions: 02/08/18 11:29 * Assess/adjust medications daily and /or as needed * See patient on an individual basis 7x/week to assess status of hallucinations * Discuss risks, benefits, side effects and alternatives of medications *
[2018-02-08] MEDS: Multiple Vitamins Tab PO SCH (10:05)
--- NOTE | 2018-02-08 10:28 | PCM.PSYCH ---
Initial Psychiatric Evaluation - Initial Psychiatric Evaluation Type of Admission: Voluntary Legal Status: Capacity Chief Complaint (in patient's own words): I 'm feeling depressed and suicidal.' History of Present Illness and Precipitating Events: Pt is a 47 yo AAF who came to the ED with c/o depressed mood and suicidal ideation and auditory hallucinations. Credit Front Office Developer is familiar with this patient. Patient was just discharged from [facility] a couple of months ago and she was discharged from [facility] last week. As per the patient she relapsed on cocaine and heroin and stopped taking her medications. As per the ED notes, pt reported the following: "I'm sad and very depressed" 'I go through moods;" High's;" I feel like I'm on top of the world, and then it passes, and I'm down;" And I start hearing my grandmother's voice;" Pt reports experiencing a command "voice" of her grandmother telling her to "hurt" herself;' Pt also reports recent thoughts of suicide; Three days ago, Pt attempted suicide by jumping from a 4 story balcony , sustaining injury to her left knee (swelling of the left knee was noted); However, Pt sought no treatment for same; Pt continues to endorse active thoughts of suicide, but denies having an active suicide plan; When asked how likely it would be for her to make another suicide attempt, Pt stated: "Anything 's possible"; Pt does have a prior hx of suicide attempts, lacerating her left forearm and od on "a bunch of pills" (old wounds were noted on left forearm). She reports depressed mood, feelings of hopelessness and helplessness, poor sleep and poor appetite. She also reports at times irritability and agitation. She reports auditory hallucinations and paranoia. She reports of drinking half pint of liquor and 2-3 bags of heroin daily. She also reports withdrawal symptoms from heroin and drinking including cramps, joint pains, sweating, headaches and anxiety. Current Medications: Active Medications Generic Name Dose Route Start Last Admin Trade Name Freq PRN Reason Stop Dose Admin Chlordiazepoxide 25 mg 02/08/18 02:07 02/08/18 02:27 Librium PO 25 mg Q4H PRN Administration Alcohol and benzo Withdrawal Clonidine HCl 0.1 mg 02/08/18 01:37 Catapres PO Q8 PRN COWS Score More or Equal to 5 Hydroxyzine HCl 25 mg 02/08/18 01:41 02/08/18 02:27 Atarax PO 25 mg Q6 PRN Administration Anxiety Ibuprofen 600 mg 02/08/18 01:40 02/08/18 02:27 Motrin Tab PO 600 mg TID PRN Administration Pain, moderate (4-7) Loperamide HCl 2 mg 02/08/18 01:37 Imodium PO Q8 PRN Diarrhea Multivitamins 1 tab 02/08/18 10:00 02/08/18 10:05 Hexavitamin PO 1 tab DAILY JOAQUÍN Administration Ondansetron HCl 4 mg 02/08/18 01:37 Zofran Tab PO Q8 PRN Nausea/Vomiting Trazodone HCl 50 mg 02/08/18 02:06 02/08/18 02:28 Desyrel PO 50 mg HS PRN Administration Insomnia Past Psychiatric History - Past Psychiatric History Previous Treatment History: Inpatient Pertinent Medical Hx (Current Medical&Sleep Prob, Allergies): Allergies Allergy/AdvReac Type Severity Reaction Status Date / Time Penicillins AdvReac RASH Verified 02/07/18 22:49 QUEtiapine [SEROquel] 300 mg PO HS #30 tab 02/01/18 QUEtiapine [Seroquel] 100 mg PO DAILY #30 tab 02/01/18 traZODone [Desyrel] 150 mg PO HS #90 tab 02/01/18 Ativan 02/07/18 Review of Systems - Review of Systems All systems: reviewed and no additional remarkable complaints except - Psychiatric Psychiatric: Anxiety, Auditory Hallucinations, Irritability, Mood Swings, Paranoia, Suicidal Ideation Mental Status Examination - Personal Presentation Personal Presentation: Looks stated age - Affect Affect: Broad - Motor Activity Motor Activity: Psychomotor Agitation - Reliability in Providing Information Reliability in Providing Information: Poor, due to alteration in thoughts, Poor , due to altered mood - Speech Speech: Disorganized - Mood Mood: Depressed, Anxious - Formal Thought Process Formal Thought Process: Hallucinations, Delusions, Paranoia, Loosening of associations - Hallucinations/Delusions Hallucinations: Auditory - Obsessions/Compulsions Obsessions: No Compulsions: No - Cognitive Functions Orientation: Person, Place, Situation, Time Sensorium: Alert Attention/Concentration: Attentive Abstract Thinking: [place] Estimate of Intelligence: Below average Judgement: Imparied, as evidence by: Poor judgement, Imparied, as evidence by: Lack of insight into illness - Risk Risk: Suicidal, Withdrawal, Diminished functioning - Limitations Limitations: Living alone DSM 5 DX - DSM 5 DSM 5 Diagnosis: Schizoaffective disorder depressive type Alcohol use disorder severe Opioid use disorder severe Opioid withdrawal Cocaine use disorder severe - Recommended/Plan of Treatment Treatment Recommendations and Plan of Treatment: Schizoaffective disorder depressive type CBT Psychoeducation Supportive therapy, group therapy, individual therapy Trazodone 50 mg by mouth daily at bedtime Seroquel 300 mg PO QHS Gabapentin 300 mg po TID Alcohol use disorder severe CBT Psychoeducation Supportive therapy, individual therapy Use [place] for abstinence Librium when necessary Opioid use disorder severe CBT Psychoeducation Supportive therapy, individual therapy Use [place] for abstinence Opioid withdrawal CBT Psychoeducation Supportive therapy, individual therapy Clonidine when necessary Methadone taper Cocaine use disorder severe Monitor signs and symptoms Use [place] for abstinence
[2018-02-09] MEDS: Multiple Vitamins Tab PO SCH (09:49)
--- NOTE | 2018-02-09 10:19 | PCM.PYCHPN ---
Psychiatric Progress Note - Psychiatric Progress Note Patient seen today, length of contact: 15 min Patient Chief Complaint: I 'm feeling depressed .' Problems Identified/Issues Discussed: Patient seen and evaluated, chart reviewed and discussed with the nurse. Today patient appeared more organized and less internally preoccupied. Patient reports some improvement in the delusions and paranoia. She still reports depressed mood and feelings of hopelessness and helplessness. She reports withdrawal symptoms including cramps, sweating, headaches anxiety. But remained isolated and withdrawn. She is taking medication and denies any side effects. Symptoms are improving but she needs more time for stabilization. Medication Change: Yes Medical Record Reviewed: Yes Mental Status Examination - Cognitive Function Orientation: Person, Place, Situation, Time Memory: Intact Attention: WNL Concentration: Poor Association: Loose Fund of Knowledge: WNL - Mood Mood: Depressed, Anxious - Affect Affect: Broad - Speech Speech: Soft - Formal Thought Process Formal Thought Process: Hallucinations, Delusions, Paranoia, Loosening of associations - Suicidal Ideation Suicidal Ideation: No - Homicidal Ideation Homicidal Ideation: No Goal/Treatment Plan - Goal/Treatment Plan Need for Continued Stay: Severe depression anxiety, Severe functional impairment Progress Toward Problem(s) and Goals/Treatment Plan: Schizoaffective disorder depressive type CBT Psychoeducation Supportive therapy, group therapy, individual therapy Trazodone 50 mg by mouth daily at bedtime Seroquel 300 mg PO QHS Gabapentin 300 mg po TID Alcohol use disorder severe CBT Psychoeducation Supportive therapy, individual therapy Use [place] for abstinence Librium when necessary Opioid use disorder severe CBT Psychoeducation Supportive therapy, individual therapy Use [place] for abstinence Opioid withdrawal CBT Psychoeducation Supportive therapy, individual therapy Clonidine when necessary Methadone taper Cocaine use disorder severe Monitor signs and symptoms Use [place] for abstinence - Smoking Cessation Smoking Cessation Initiated: No
[2018-02-10] MEDS: Multiple Vitamins Tab PO SCH (09:41)
[2018-02-10] MEDS ORDERED: Vitamins A & D Oint UD Foilpak TOP PRN (15:56)
[2018-02-11] MEDS: Multiple Vitamins Tab PO SCH (09:39)
--- NOTE | 2018-02-11 13:51 | PCM.PYCHPN ---
Psychiatric Progress Note - Psychiatric Progress Note Patient seen today, length of contact: 15 min Patient Chief Complaint: I 'm feeling anxious.' Problems Identified/Issues Discussed: Patient seen and evaluated, chart reviewed and discussed with the nurse. Today patient reports a lot of anxiety and irritability. She appeared more organized and less internally preoccupied. Patient reports some improvement in the delusions and paranoia. She still reports depressed mood and feelings of hopelessness and helplessness. She reports some improvement in the withdrawal symptoms including cramps, sweating, headaches anxiety. But remained isolated and withdrawn. She is taking medication and denies any side effects. Symptoms are improving but she needs more time for stabilization. Medication Change: Yes Medical Record Reviewed: Yes Mental Status Examination - Cognitive Function Orientation: Person, Place, Situation, Time Memory: Intact Attention: WNL Concentration: Poor Association: Loose Fund of Knowledge: WNL - Mood Mood: Depressed, Anxious - Affect Affect: Broad - Speech Speech: Soft - Formal Thought Process Formal Thought Process: Delusions, Paranoia, Loosening of associations - Suicidal Ideation Suicidal Ideation: No - Homicidal Ideation Homicidal Ideation: No Goal/Treatment Plan - Goal/Treatment Plan Need for Continued Stay: Severe depression anxiety, Severe functional impairment Progress Toward Problem(s) and Goals/Treatment Plan: Schizoaffective disorder depressive type CBT Psychoeducation Supportive therapy, group therapy, individual therapy Trazodone 50 mg by mouth daily at bedtime Seroquel 300 mg PO QHS Gabapentin 300 mg po TID Alcohol use disorder severe CBT Psychoeducation Supportive therapy, individual therapy Use [place] for abstinence Librium when necessary Opioid use disorder severe CBT Psychoeducation Supportive therapy, individual therapy Use [place] for abstinence Opioid withdrawal CBT Psychoeducation Supportive therapy, individual therapy Clonidine when necessary Methadone taper Cocaine use disorder severe Monitor signs and symptoms Use [place] for abstinence
[2018-02-11] MEDS: Divalproex 250 mg DR Tab PO SCH ×2 (13:54→17:14)
--- NOTE | 2018-02-11 13:54 | PCM.PYCHPN ---
Psychiatric Progress Note - Psychiatric Progress Note Patient seen today, length of contact: 15 min Patient Chief Complaint: I 'm feeling anxious.' Problems Identified/Issues Discussed: Patient seen and evaluated, chart reviewed and discussed with the nurse. Today patient reports her anxiety is getting worse. She reports racing thoughts and agitation. Patient reports some improvement in the delusions and paranoia. She still reports hearing voices and seeing things. She still reports depressed mood. She reports improvement in the withdrawal symptoms. She is taking medication and denies any side effects. Symptoms are improving but she needs more time for stabilization. Supportive therapy was given. Medication Change: Yes (start Haldol, start Depakote) Medical Record Reviewed: Yes Mental Status Examination - Cognitive Function Orientation: Person, Place, Situation, Time Memory: Intact Attention: WNL Concentration: Poor Association: Loose Fund of Knowledge: WNL - Mood Mood: Depressed, Anxious - Affect Affect: Broad - Speech Speech: Soft - Formal Thought Process Formal Thought Process: Hallucinations, Delusions, Paranoia, Loosening of associations - Suicidal Ideation Suicidal Ideation: No - Homicidal Ideation Homicidal Ideation: No Goal/Treatment Plan - Goal/Treatment Plan Need for Continued Stay: Severe depression anxiety, Severe functional impairment Progress Toward Problem(s) and Goals/Treatment Plan: Schizoaffective disorder depressive type -CBT -Psychoeducation -Supportive therapy, group therapy, individual therapy -Trazodone 50 mg by mouth daily at bedtime -Seroquel 300 mg PO QHS -Gabapentin 300 mg po TID -Haldol 5 mg by mouth twice a day -Depakote 250 mg by mouth twice a day Alcohol use disorder severe -CBT -Psychoeducation -Supportive therapy, individual therapy -Use [place] for abstinence -Librium when necessary Opioid use disorder severe -CBT -Psychoeducation -Supportive therapy, individual therapy -Use [place] for abstinence Opioid withdrawal -CBT -Psychoeducation -Supportive therapy, individual therapy -Clonidine when necessary -Methadone taper Cocaine use disorder severe -Monitor signs and symptoms -Use [place] for abstinence
[2018-02-12 06:11] VITALS: RESP 20
[2018-02-12] MEDS: Divalproex 250 mg DR Tab PO SCH ×2 (10:24→17:27)
[2018-02-12] MEDS: Multiple Vitamins Tab PO SCH (10:25)
[2018-02-13 06:25] VITALS: O2SAT 100
[2018-02-13] MEDS: Divalproex 250 mg DR Tab PO SCH (09:35)
[2018-02-13] MEDS: Multiple Vitamins Tab PO SCH (09:35)
[2018-02-13] MEDS: Divalproex 500 mg DR Tab PO SCH (17:21)
--- NOTE | 2018-02-13 23:15 | PCM.PYCHPN ---
Psychiatric Progress Note - Psychiatric Progress Note Patient seen today, length of contact: 15 min Patient Chief Complaint: "I don't feel well" Problems Identified/Issues Discussed: The pt is seen, chart reviewed, case discussed with staff. The pt is compliant with medications and reports no side-effects. Symptoms are improving but needs more time to stabilize. After care discussed, support and psychoeducation given. Medication Change: No Medical Record Reviewed: Yes Mental Status Examination - Cognitive Function Orientation: Person, Place, Situation, Time Memory: Intact Attention: WNL Concentration: Poor Association: Loose Fund of Knowledge: WNL - Mood Mood: Depressed, Anxious - Affect Affect: Broad - Speech Speech: Soft - Formal Thought Process Formal Thought Process: Hallucinations, Delusions, Paranoia, Loosening of associations - Suicidal Ideation Suicidal Ideation: No - Homicidal Ideation Homicidal Ideation: No Goal/Treatment Plan - Goal/Treatment Plan Need for Continued Stay: Severe depression anxiety, Discharge may exacerbated symptoms, Severe functional impairment Progress Toward Problem(s) and Goals/Treatment Plan: Continue medications Support and psychoeducation daily Attend groups and activities daily After care planning by POPPY
--- NOTE | 2018-02-13 23:29 | PCM.PYCHPN ---
Psychiatric Progress Note - Psychiatric Progress Note Patient seen today, length of contact: 15 min Patient Chief Complaint: "I need more meds" Problems Identified/Issues Discussed: The pt is seen, chart reviewed, case discussed with staff. Support given, meds adjusted No new symptoms reported, improving slowly and needs more time No SEs from medications, risks discussed. After care discussed Medication Change: Yes (increase depakote) Medical Record Reviewed: Yes Mental Status Examination - Cognitive Function Orientation: Person, Place, Situation, Time Memory: Intact Attention: WNL Concentration: Poor Association: Loose Fund of Knowledge: WNL - Mood Mood: Depressed, Anxious - Affect Affect: Broad - Speech Speech: Soft - Formal Thought Process Formal Thought Process: Hallucinations, Delusions, Paranoia, Loosening of associations - Suicidal Ideation Suicidal Ideation: No - Homicidal Ideation Homicidal Ideation: No Goal/Treatment Plan - Goal/Treatment Plan Need for Continued Stay: Severe depression anxiety, Discharge may exacerbated symptoms, Severe functional impairment Progress Toward Problem(s) and Goals/Treatment Plan: Continue medications Support and psychoeducation daily Attend groups and activities daily After care planning by POPPY
[2018-02-14] MEDS: Multiple Vitamins Tab PO SCH (09:29)
[2018-02-14] MEDS: Divalproex 500 mg DR Tab PO SCH ×2 (09:29→17:07)
--- NOTE | 2018-02-14 11:36 | PCM.PYCHPN ---
Psychiatric Progress Note - Psychiatric Progress Note Patient seen today, length of contact: 16 min Patient Chief Complaint: "I saw blood in my stool" Problems Identified/Issues Discussed: The pt is seen, chart reviewed, case discussed with staff. Support given, meds adjusted No new symptoms reported, improving slowly and needs more time She says she saw red blood - stool softener started, hygiene recommended, cbc ordered and UA (nurse thinks she said it was in her urine too - pt now denies) No SEs from medications, risks discussed. After care discussed Medication Change: Yes (increase depakote) Medical Record Reviewed: Yes Mental Status Examination - Cognitive Function Orientation: Person, Place, Situation, Time Memory: Intact Attention: WNL Concentration: Poor Association: Loose Fund of Knowledge: WNL - Mood Mood: Depressed, Anxious - Affect Affect: Broad - Speech Speech: Soft - Formal Thought Process Formal Thought Process: Hallucinations, Delusions, Paranoia, Loosening of associations - Suicidal Ideation Suicidal Ideation: No - Homicidal Ideation Homicidal Ideation: No Goal/Treatment Plan - Goal/Treatment Plan Need for Continued Stay: Severe depression anxiety, Discharge may exacerbated symptoms, Severe functional impairment Progress Toward Problem(s) and Goals/Treatment Plan: Continue medications Support and psychoeducation daily Attend groups and activities daily After care planning by SW Labs ordered
[2018-02-14 14:15] LABS: BASO # 0.1 K/uL (0.0-0.2); BASO % 1.8 % (0.0-2.0); EOS # 0.2 K/uL (0.0-0.7); EOS % 3.2 % (0.0-4.0); HEMOGLOBIN 12.8 g/dL (11.0-16.0); LYMPH # 2.6 K/uL (1.0-4.3); LYMPH % 35.6 % (20.0-40.0); MEAN CELL VOLUME 90.3 fL (81.0-99.0); MEAN CORPUSCULAR HEMOGLOBIN 30.5 pg (27.0-31.0); MEAN CORPUSCULAR HGB CONC 33.8 g/dL (33.0-37.0); MONO # 0.8 K/uL (0.0-0.8); MONO % 10.3 % (0.0-10.0); NEUT # 3.6 K/uL (1.8-7.0); NEUT % 49.1 % (50.0-75.0); NRBC % 0.1 % (0.0-2.0); RBC 4.18 Mil/uL (3.80-5.20); RED CELL DISTRIBUTION WIDTH 16.2 % (11.5-14.5); WHITE BLOOD COUNT 7.4 K/uL (4.8-10.8)
--- NOTE | 2018-02-15 09:54 | PCM.BM ---
<Mariah León - Last Filed: 02/15/18 09:53> Treatment assets and liabiliti Patient Assests: adapts well (Chronic, Anemia), cooperative, motivated, self- reliant, ADL independent, negotiates basic needs, cognitively intact, good interpersonal skills Patient Liabilities: financial problems, substance abuse (cocaine, heroin, shelly. ), legal issue (has Fdc time) - Milieu Protocol Maintain good personal hygiene: daily Encourage regular showers, every shift Remind patient to perform daily oral care, every shift Assist patient to perform ADL's Conduct patient checks and document Observation sheet: Q15 minutes Maintain personal safety: every shift Educate patient to report safety concerns to staff, every shift Monitor environment for contraband/sharps Medication safety: Monitor for expected outcome, potential side effects: every shift, Assess barriers to learning: every shift, Assess readiness for medication education: every shift Milieu Narrative: Continue medications Support and psychoeducation daily Attend groups and activities daily After care planning by Discharge/Continuing Care - Treatment Team Participation Patient/Family/SO Statement: Continue medications Support and psychoeducation daily Attend groups and activities daily After care planning by Treatment Plan Review - Discharge / Continuing Care Discharge to:: Substance Abuse Rehab Behavioral Health Services: Residential treatment Health Needs: Medications/Rx, Alcohol/Drug treatment <Dennise Brown - Last Filed: 02/15/18 14:10> - Diagnosis (1) Schizoaffective disorder Status: Chronic Interventions: 02/15/18 14:10 * Assess/adjust medications daily and /or as needed * See patient on an individual basis 7x/week to assess status of hallucinations * Discuss risks, benefits, side effects and alternatives of medications * (2) Opiate abuse, continuous Status: Acute Interventions: 02/15/18 14:10 * Assess 7x/week regarding severity of withdrawal * Educate regarding risks, benefits, side effects and alternatives of medications * Use Motivational Interviewing for abstinence * Use CBT for relapse prevention * Medication management for withdrawal symptoms * Encourage medication assisted treatment * <Ekaterina Abrams - Last Filed: 02/15/18 14:40> Treatment Plan Review - Problem Depression Date Initiated: 02/15/18 Time Initiated: 14:40 Progress toward outcomes: improved
--- NOTE | 2018-02-15 10:00 | PCM.PYCHPN ---
Psychiatric Progress Note - Psychiatric Progress Note Patient seen today, length of contact: 16 min Patient Chief Complaint: I 'm feeling anxious.' Problems Identified/Issues Discussed: Patient seen and evaluated, chart reviewed and discussed with the nurse. Today patient reports her anxiety is getting worse. She reports racing thoughts and agitation. Patient reports some improvement in the delusions and paranoia. She still reports hearing voices and seeing things. She still reports depressed mood. She reports improvement in the withdrawal symptoms. She is taking medication and denies any side effects. Symptoms are improving but she needs more time for stabilization. Supportive therapy was given. Medication Change: Yes (decrease depakote, d/c neurontin) Medical Record Reviewed: Yes Mental Status Examination - Cognitive Function Orientation: Person, Place, Situation, Time Memory: Intact Attention: WNL Concentration: Poor Association: Loose Fund of Knowledge: WNL - Mood Mood: Depressed, Anxious - Affect Affect: Broad - Speech Speech: Soft - Formal Thought Process Formal Thought Process: Hallucinations, Delusions, Paranoia, Loosening of associations - Suicidal Ideation Suicidal Ideation: No - Homicidal Ideation Homicidal Ideation: No Goal/Treatment Plan - Goal/Treatment Plan Need for Continued Stay: Severe depression anxiety, Discharge may exacerbated symptoms, Severe functional impairment Progress Toward Problem(s) and Goals/Treatment Plan: Schizoaffective disorder depressive type -CBT -Psychoeducation -Supportive therapy, group therapy, individual therapy -Trazodone 50 mg by mouth daily at bedtime -Seroquel 300 mg PO QHS -DC Gabapentin 300 mg po TID -Haldol 5 mg by mouth twice a day -Depakote 250 mg by mouth twice a day Alcohol use disorder severe -CBT -Psychoeducation -Supportive therapy, individual therapy -Use [place] for abstinence -Librium when necessary Opioid use disorder severe -CBT -Psychoeducation -Supportive therapy, individual therapy -Use [place] for abstinence Opioid withdrawal -CBT -Psychoeducation -Supportive therapy, individual therapy -Clonidine when necessary -Methadone taper Cocaine use disorder severe -Monitor signs and symptoms -Use [place] for abstinence
[2018-02-15] MEDS: Divalproex 500 mg DR Tab PO SCH (10:03)
[2018-02-15] MEDS: Multiple Vitamins Tab PO SCH (10:03)
[2018-02-15] MEDS: Divalproex 250 mg DR Tab PO SCH (17:14)
[2018-02-16 06:38] VITALS: BP 94/63; PULSE 94; TEMP 98.2
[2018-02-16] MEDS: Multiple Vitamins Tab PO SCH (09:39)
[2018-02-16] MEDS: Divalproex 250 mg DR Tab PO SCH (09:40)
--- NOTE | 2018-02-16 10:17 | PCM.PYCHDC ---
Mental Status Examination - Mental Status Examination Orientation: Person, Place, Situation, Time Memory: Intact Mood: Neutral Affect: Constricted Speech: Soft Attention: WNL Concentration: WNL Association: WNL Fund of Knowledge: WNL Formal Thought Process: No Impairment Description of patient's judgement and insight: good, fair Psychotic Thoughts and Behaviors: denies any AVH Suicidal Ideation: No Current Homicidal Ideation?: No Discharge Summary - Discharge Note Reason for Hospitalization: Pt is a 47 yo AAF who came to the ED with c/o depressed mood and suicidal ideation and auditory hallucinations. Mixed Animal Veterinarian is familiar with this patient. Patient was just discharged from [facility] a couple of months ago and she was discharged from [facility] last week. As per the patient she relapsed on cocaine and heroin and stopped taking her medications. As per the ED notes, pt reported the following: "I'm sad and very depressed" 'I go through moods;" High's;" I feel like I'm on top of the world, and then it passes, and I'm down;" And I start hearing my grandmother's voice;" Pt reports experiencing a command "voice" of her grandmother telling her to "hurt" herself;' Pt also reports recent thoughts of suicide; Three days ago, Pt attempted suicide by jumping from a 4 story balcony , sustaining injury to her left knee (swelling of the left knee was noted); However, Pt sought no treatment for same; Pt continues to endorse active thoughts of suicide, but denies having an active suicide plan; When asked how likely it would be for her to make another suicide attempt, Pt stated: "Anything 's possible"; Pt does have a prior hx of suicide attempts, lacerating her left forearm and od on "a bunch of pills" (old wounds were noted on left forearm). She reports depressed mood, feelings of hopelessness and helplessness, poor sleep and poor appetite. She also reports at times irritability and agitation. She reports auditory hallucinations and paranoia. She reports of drinking half pint of liquor and 2-3 bags of heroin daily. She also reports withdrawal symptoms from heroin and drinking including cramps, joint pains, sweating, headaches and anxiety. Consultations:: List each consultation separately and include: 1. Reason for request. 2. Findings. 3. Follow-up Summary of Hospital Course include:: 1. Description of specific treatment plan utilized for patients during their course of treatmen. 2. Summarize the time- course for resolution of acute symptoms and/or regressed behaviors. 3. Describe issues identified and worked on during hospitalization. 4. Describe medication utilized. 5. Describe medical problems identified and treated. 6. Reassessment of suicide risk Summary of Hospital Course: Pt is a 47 yo AAF who came to the ED with c/o depressed mood and suicidal ideation and auditory hallucinations. Mixed Animal Veterinarian is familiar with this patient. Patient was just discharged from [facility] a couple of months ago and she was discharged from [facility] last week. As per the patient she relapsed on cocaine and heroin and stopped taking her medications. As per the ED notes, pt reported the following: "I'm sad and very depressed" 'I go through moods;" High's;" I feel like I'm on top of the world, and then it passes, and I'm down;" And I start hearing my grandmother's voice;" Pt reports experiencing a command "voice" of her grandmother telling her to "hurt" herself;' Pt also reports recent thoughts of suicide; Three days ago, Pt attempted suicide by jumping from a 4 story balcony , sustaining injury to her left knee (swelling of the left knee was noted); However, Pt sought no treatment for same; Pt continues to endorse active thoughts of suicide, but denies having an active suicide plan; When asked how likely it would be for her to make another suicide attempt, Pt stated: "Anything 's possible"; Pt does have a prior hx of suicide attempts, lacerating her left forearm and od on "a bunch of pills" (old wounds were noted on left forearm). She reports depressed mood, feelings of hopelessness and helplessness, poor sleep and poor appetite. She also reports at times irritability and agitation. She reports auditory hallucinations and paranoia. She reports of drinking half pint of liquor and 2-3 bags of heroin daily. She also reports withdrawal symptoms from heroin and drinking including cramps, joint pains, sweating, headaches and anxiety. - Diagnosis (1) Schizoaffective disorder Current Visit: No Status: Chronic Priority: Medium (2) Opiate abuse, continuous Current Visit: Yes Status: Acute - Final Diagnosis (DSM 5) Condition upon Discharge: STABLE DSM 5: Schizoaffective disorder depressive type Alcohol use disorder severe Opioid use disorder severe Opioid withdrawal Cocaine use disorder severe Disposition: HOME/ ROUTINE Follow-up Treatment Plan: Schizoaffective disorder depressive type -CBT -Psychoeducation -Supportive therapy, group therapy, individual therapy -Trazodone 50 mg by mouth daily at bedtime -Seroquel 300 mg PO QHS -DC Gabapentin 300 mg po TID -Haldol 5 mg by mouth twice a day -Depakote 250 mg by mouth twice a day Alcohol use disorder severe -CBT -Psychoeducation -Supportive therapy, individual therapy -Use [place] for abstinence -Librium when necessary Opioid use disorder severe -CBT -Psychoeducation -Supportive therapy, individual therapy -Use [place] for abstinence Opioid withdrawal -CBT -Psychoeducation -Supportive therapy, individual therapy -Clonidine when necessary -Methadone taper Cocaine use disorder severe -Monitor signs and symptoms -Use [place] for abstinence Prescriptions/Medication Reconciliation: Divalproex [Depakote DR] 250 mg PO BID #60 tcp Haloperidol [Haldol] 5 mg PO BID #60 tab QUEtiapine [SEROquel] 300 mg PO HS #30 tab
== END 2018-02-16 10:45 | disposition home or self-care (01) | DRG 430 ==
LOC: C.ER 22:44 → C.5E 02-08 01:33
PROVIDERS: ADMIT Psychiatry & Neurology Psychiatry; ATTEND Psychiatry & Neurology Psychiatry
PROC: GZ3ZZZZ Medication Management (ICD-10-PCS; principal; 2018-02-08)
PROC: HZ89ZZZ Medication Management for Substance Abuse Treatment, Other Replacement Medication (ICD-10-PCS; 2018-02-08)
PROC: HZ59ZZZ Individual Psychotherapy for Substance Abuse Treatment, Supportive (ICD-10-PCS; 2018-02-08)
PROC: HZ46ZZZ Group Counseling for Substance Abuse Treatment, Psychoeducation (ICD-10-PCS; 2018-02-08)
PROC: GZHZZZZ Group Psychotherapy (ICD-10-PCS; 2018-02-08)
PROC: GZ56ZZZ Individual Psychotherapy, Supportive (ICD-10-PCS; 2018-02-08)
DX: F25.1 Schizoaffective disorder, depressive type (principal); F11.23 Opioid dependence with withdrawal; F14.20 Cocaine dependence, uncomplicated; F10.10 Alcohol abuse, uncomplicated; F31.9 Bipolar disorder, unspecified; F41.9 Anxiety disorder, unspecified; R45.851 Suicidal ideations; I10 Essential (primary) hypertension; F17.210 Nicotine dependence, cigarettes, uncomplicated; J45.909 Unspecified asthma, uncomplicated; Z91.5 Personal history of self-harm; Z79.899 Other long term (current) drug therapy

== ENCOUNTER 2018-09-30 00:17 | Emergency (ER) | payer MEDICAID ==
[2018-09-30 00:17] VITALS: BMI 25.0
--- NOTE | 2018-09-30 00:30 | C.PDOC ---
History Of Present Illness Patient presents to the ER stating she feels depressed and thought of killing herself, no specific plan. She reports having a recent in the family. Denies any physical complaints at this time. Time Seen by Provider: 09/30/18 00:30 History Per: Patient History/Exam Limitations: no limitations Onset/Duration Of Symptoms: Days Current Symptoms Are (Timing): Still Present Suicide/Self Injury Attempted (Context): None Modifying Factor(s): None Severity: None Pain Scale Rating Of: 0 Associated Symptoms: Depression, Suicidal Thoughts. denies: Suicidal Plan Involuntary Hold By: None Recent travel outside of the [place]: No Past Medical History Reviewed: Historical Data, Nursing Documentation, Vital Signs - Medical History PMH: Anemia, Anxiety, Asthma, Bipolar Disorder, Depression, Schizophrenia Denies: Arthritis, Crohn's Disease, Diabetes, Diverticulitis, Fractures, Gastritis, Gall Bladder Disease, Hepatitis, HIV, HTN, Hyperthyroidism, Hypothyroidism, Kidney Stones, Osteoporosis, Pancreatitis, Chronic Kidney Disease, Rheumatoid Arthritis, Seizures, Sexually Transmitted Disease Surgical History: Cholecystectomy - [facility] (08/25/18) DETOXIFICATION SERVICES FOR SUBSTANCE ABUSE TREATMENT (11/30/17) GROUP DISEASE EDUCATION SPECIALIST FOR SUBSTANCE ABUSE TREATMENT, PSYCHOEDUCATION (02/08/18) GROUP DISEASE EDUCATION SPECIALIST FOR SUBSTANCE ABUSE, COGNITIVE BEHAVIORAL (11/30/17) GROUP PSYCHOTHERAPY (08/25/18) INDIV DISEASE EDUCATION SPECIALIST FOR SUBSTANCE ABUSE TREATMENT, BEHAVIORAL (04/21/18) INDIV PSYCHOTHERAPY FOR SUBSTANCE ABUSE TREATMENT, SUPPORT (02/08/18) INDIV PSYCHOTHERAPY FOR SUBSTANCE ABUSE, COGNITIV BEHAVIORAL (11/30/17) INDIV PSYCHOTHERAPY FOR SUBSTANCE ABUSE, MOTIVATION ENHANCE (08/25/18) INDIV PSYCHOTHERAPY FOR SUBSTANCE ABUSE, PSYCHOEDUCATION (01/26/18) INDIVIDUAL PSYCHOTHERAPY, BEHAVIORAL (04/21/18) INDIVIDUAL PSYCHOTHERAPY, COGNITIVE-BEHAVIORAL (11/30/17) INDIVIDUAL PSYCHOTHERAPY, SUPPORTIVE (08/25/18) INTRODUCTION OF ANTI-INFLAMMATORY INTO JOINTS, PERC APPROACH (10/11/17) INTRODUCTION OF LOCAL ANESTHETIC INTO JOINTS, PERC APPROACH (10/11/17) INTRODUCTION OF SERUM/TOX/VACCINE INTO MUSCLE, PERC APPROACH (01/26/18) MEDICATION MANAGEMENT (04/16/18) MEDS MGMT FOR SUBSTANCE ABUSE TREATMENT, OTH REPL MED (02/08/18) Family History: States: No Known Family Hx - Social History Hx Tobacco Use: Yes Hx Alcohol Use: No Hx Substance Use: Yes - Immunization History Hx Tetanus Toxoid Vaccination: No Hx Influenza Vaccination: Yes Hx Pneumococcal Vaccination: No Review Of Systems Constitutional: Negative for: Fever, Chills Cardiovascular: Negative for: Chest Pain, Palpitations Respiratory: Negative for: Cough, Shortness of Breath Gastrointestinal: Negative for: Nausea, Vomiting Neurological: Negative for: Weakness, Numbness Psych: Positive for: Depression, Suicidal ideation Physical Exam - Physical Exam Appears: Non-toxic Skin: Warm, Dry Head: Normacephalic Oral Mucosa: Moist Chest: Symmetrical, No Tenderness Cardiovascular: Rhythm Regular Respiratory: No Rales, No Rhonchi, No Wheezing Gastrointestinal/Abdominal: Soft, No Tenderness Neurological/Psych: Oriented x3 ED Course And Treatment - Laboratory Results Result Diagrams: 09/30/18 00:55 09/30/18 00:55 O2 Sat by Pulse Oximetry: 96 Pulse Ox Interpretation: Normal Progress Note: Blood work and urinalysis ordered. Crisis notified. 4:40 AM Pt was cleare for discharge by dr giron. Medical Decision Making Medical Decision Making: Upon provider reevaluation patient is feeling better, is medically stable, and requires no further treatment in the ED at this time. Patient will be discharged home . Counseling was provided and all questions were answered regarding diagnosis and need for follow up with the referred clinic [facility]. There is agreement to discharge plan. Return if symptoms persist or worsen. Disposition Counseled Patient/Family Regarding: Studies Performed, Diagnosis, Need For Followup - Disposition Disposition: HOME/ ROUTINE Disposition Time: 00:30 Condition: FAIR Additional Instructions: Please follow up with the [facility] program Instructions: Polysubstance Abuse (DC), Depression, Adult (DC) - Clinical Impression Clinical Impression: Polysubstance abuse, Depressive disorder - Scribe Statement The provider has reviewed the documentation as recorded by the Scribe Juvencio Gates All medical record entries made by the Scribe were at my direction and personally dictated by me. I have reviewed the chart and agree that the record accurately reflects my personal performance of the history, physical exam, medical decision making, and the department course for this patient. I have also personally directed, reviewed, and agree with the discharge instructions and disposition.
[2018-09-30 00:58] LABS: BASO % 0.4 % (0.0-2.0); EOS # 0.3 K/uL (0.0-0.7); HEMOGLOBIN 12.8 g/dL (11.0-16.0); LYMPH # 3.2 K/uL (1.0-4.3); LYMPH % 29.5 % (20.0-40.0); MEAN CELL VOLUME 90.4 fL (81.0-99.0); MEAN CORPUSCULAR HEMOGLOBIN 30.3 pg (27.0-31.0); MEAN CORPUSCULAR HGB CONC 33.6 g/dL (33.0-37.0); MEAN PLATELET VOLUME 8.9 fL (7.2-11.7); MONO % 9.5 % (0.0-10.0); NEUT # 6.2 K/uL (1.8-7.0); NEUT % 57.6 % (50.0-75.0); RBC 4.22 Mil/uL (3.80-5.20); RED CELL DISTRIBUTION WIDTH 15.5 % (11.5-14.5); WHITE BLOOD COUNT 10.8 K/uL (4.8-10.8)
[2018-09-30 01:01] LABS: HCG,QUALITATIVE URINE NEGATIVE (NEGATIVE)
[2018-09-30 01:05] LABS: SQUAMOUS EPITHIAL 1 /hpf (0-5); URINE BACTERIA RARE (<OCC); URINE BILIRUBIN NEGATIVE (NEGATIVE); URINE BLOOD NEGATIVE (NEGATIVE); URINE CLARITY Clear (Clear); URINE COLOR Yellow (YELLOW); URINE GLUCOSE (UA) NORMAL (Normal); URINE LEUKOCYTE ESTERASE NEG Leu/uL (Negative); URINE PROTEIN 2+ mg/dL (NEGATIVE)
[2018-09-30 01:18] LABS: ALB/GLOB RATIO 1.4 (1.0-2.1); ALBUMIN 4.7 g/dL (3.5-5.0); ALT/SGPT 50 U/L (9-52); AST/SGOT 49 U/L (14-36); BLOOD UREA NITROGEN 18 mg/dL (7-17); CALCIUM 8.8 mg/dl (8.6-10.4); GFR NON-AFRICAN AMERICAN > 60
[2018-09-30 01:23] LABS: BARBITURATES, UR NEGATIVE (NEGATIVE); PHENCYCLIDINE, UR NEGATIVE (NEGATIVE)
[2018-09-30] MEDS ORDERED: Azithromycin 500mg/250ML NS 500 MG/250 ML BAG IVPB STA (01:56)
[2018-09-30 02:02] LABS: BENZODIAZEPINES, UR POSITIVE (NEGATIVE); OPIATES, UR POSITIVE (NEGATIVE)
[2018-09-30 06:49] VITALS: TEMP 98.6; O2SAT 98
[2018-09-30 06:58] VITALS: BP 148/78; PULSE 74; RESP 17
== END 2018-09-30 07:01 | disposition home or self-care (01) ==
LOC: C.ER 00:17
DX: F19.10 Other psychoactive substance abuse, uncomplicated (principal); F32.9 Major depressive disorder, single episode, unspecified; F20.9 Schizophrenia, unspecified; Z72.0 Tobacco use

== ENCOUNTER 2019-01-10 23:27 | Emergency (ER) | payer MEDICAID ==
[2019-01-10 23:27] VITALS: BMI 25.0
--- NOTE | 2019-01-10 23:53 | C.PDOC ---
History Of Present Illness Patient presents to the ED for evaluation of depression and auditory hallucinations. Patient reports voice are telling him to hurt himself. Patient denies HI, visual hallucinations, specific plan, other medical complaints. Time Seen by Provider: 01/10/19 23:53 Chief Complaint (Nursing): Psychiatric Evaluation History Per: Patient History/Exam Limitations: no limitations Onset/Duration Of Symptoms: Days Current Symptoms Are (Timing): Still Present Associated Symptoms: Depression, Suicidal Thoughts. denies: Suicidal Plan Recent travel outside of the [place]: No Additional History Per: Patient Past Medical History Reviewed: Historical Data, Nursing Documentation, Vital Signs Vital Signs: Last Vital Signs Temp 97.6 F 01/10/19 23:45 Pulse 80 01/10/19 23:45 Resp 14 01/10/19 23:45 BP 131/88 01/10/19 23:45 Pulse Ox 96 01/10/19 23:45 Primary Care Provider: Alie Roca - Medical History PMH: Anemia, Anxiety, Asthma, Bipolar Disorder, Depression, Schizophrenia Denies: Arthritis, Crohn's Disease, Diabetes, Diverticulitis, Fractures, Gastritis, Gall Bladder Disease, Hepatitis, HIV, HTN, Hyperthyroidism, Hyp othyroidism, Kidney Stones, Osteoporosis, Pancreatitis, Chronic Kidney Disease, Rheumatoid Arthritis, Seizures, Sexually Transmitted Disease Surgical History: Cholecystectomy - [facility] (08/25/18) DETOXIFICATION SERVICES FOR SUBSTANCE ABUSE TREATMENT (11/30/17) GROUP STAMP MAKER FOR SUBSTANCE ABUSE TREATMENT, PSYCHOEDUCATION (02/08/18) GROUP STAMP MAKER FOR SUBSTANCE ABUSE, COGNITIVE BEHAVIORAL (11/30/17) GROUP PSYCHOTHERAPY (12/28/18) INDIV STAMP MAKER FOR SUBSTANCE ABUSE TREATMENT, BEHAVIORAL (04/21/18) INDIV PSYCHOTHERAPY FOR SUBSTANCE ABUSE TREATMENT, SUPPORT (02/08/18) INDIV PSYCHOTHERAPY FOR SUBSTANCE ABUSE, COGNITIV BEHAVIORAL (12/28/18) INDIV PSYCHOTHERAPY FOR SUBSTANCE ABUSE, MOTIVATION ENHANCE (12/28/18) INDIV PSYCHOTHERAPY FOR SUBSTANCE ABUSE, PSYCHOEDUCATION (01/26/18) INDIVIDUAL PSYCHOTHERAPY, BEHAVIORAL (04/21/18) INDIVIDUAL PSYCHOTHERAPY, COGNITIVE-BEHAVIORAL (11/30/17) INDIVIDUAL PSYCHOTHERAPY, SUPPORTIVE (08/25/18) INTRODUCTION OF ANTI-INFLAMMATORY INTO JOINTS, PERC APPROACH (10/11/17) INTRODUCTION OF LOCAL ANESTHETIC INTO JOINTS, PERC APPROACH (10/11/17) INTRODUCTION OF SERUM/TOX/VACCINE INTO MUSCLE, PERC APPROACH (01/26/18) MEDICATION MANAGEMENT (11/27/18) MEDS MGMT FOR SUBSTANCE ABUSE TREATMENT, OTH REPL MED (02/08/18) Family History: States: Unknown Family Hx - Social History Hx Tobacco Use: Yes Hx Alcohol Use: Yes (occasional) Hx Substance Use: Yes (heroin and cocaine) - Immunization History Hx Tetanus Toxoid Vaccination: No Hx Influenza Vaccination: Yes Hx Pneumococcal Vaccination: No Review Of Systems Constitutional: Negative for: Fever, Chills Cardiovascular: Negative for: Chest Pain Respiratory: Negative for: Shortness of Breath Gastrointestinal: Negative for: Nausea, Vomiting, Abdominal Pain Skin: Negative for: Rash Psych: Positive for: Depression, Suicidal ideation Physical Exam - Physical Exam Appears: Non-toxic, No Acute Distress Skin: Warm, Dry Head: Normacephalic Eye(s): bilateral: Normal Inspection Neck: Supple Chest: Symmetrical Cardiovascular: Rhythm Regular Respiratory: No Rales, No Rhonchi, No Wheezing Gastrointestinal/Abdominal: Soft, No Distention Extremity: Bilateral: Atraumatic, Normal Color And Temperature, Normal ROM Neurological/Psych: Oriented x3, Normal Speech, Normal Cognition Gait: Steady ED Course And Treatment - Laboratory Results Result Diagrams: 01/11/19 00:21 01/11/19 00:21 O2 Sat by Pulse Oximetry: 96 (ON RA) Pulse Ox Interpretation: Normal Progress Note: Plan: - Labs. - UA. - Crisis. Patient was cleared for discharge by dr Garcia Reevaluation Time: 05:46 Reassessment Condition: Improved Disposition Counseled Patient/Family Regarding: Studies Performed, Diagnosis, Need For Followup - Disposition Disposition: HOME/ ROUTINE Disposition Time: 23:53 Condition: FAIR Instructions: Schizoaffective Disorder (DC) Forms: [employer] Mobile [employer] ([employer]) - Clinical Impression Clinical Impression: Schizoaffective disorder - Scribe Statement The provider has reviewed the documentation as recorded by the Scribe Shashank Alfaro All medical record entries made by the Scribe were at my direction and personally dictated by me. I have reviewed the chart and agree that the record accurately reflects my personal performance of the history, physical exam, medical decision making, and the department course for this patient. I have also personally directed, reviewed, and agree with the discharge instructions and disposition.
[2019-01-11 00:35] LABS: BASO # 0.1 K/uL (0.0-0.2); BASO % 0.5 % (0.0-2.0); EOS # 0.1 K/uL (0.0-0.7); EOS % 0.6 % (0.0-4.0); HEMOGLOBIN 13.5 g/dL (11.0-16.0); LYMPH # 4.6 K/uL (1.0-4.3); LYMPH % 23.8 % (20.0-40.0); MEAN CELL VOLUME 90.3 fL (81.0-99.0); MEAN CORPUSCULAR HEMOGLOBIN 30.3 pg (27.0-31.0); MEAN CORPUSCULAR HGB CONC 33.6 g/dL (33.0-37.0); MEAN PLATELET VOLUME 8.8 fL (7.2-11.7); MONO # 1.1 K/uL (0.0-0.8); MONO % 5.8 % (0.0-10.0); NEUT # 13.3 K/uL (1.8-7.0); NEUT % 69.3 % (50.0-75.0); RBC 4.46 Mil/uL (3.80-5.20); RED CELL DISTRIBUTION WIDTH 15.7 % (11.5-14.5); WHITE BLOOD COUNT 19.2 K/uL (4.8-10.8)
[2019-01-11 00:53] LABS: ALB/GLOB RATIO 1.3 (1.0-2.1); ALBUMIN 4.6 g/dL (3.5-5.0); ALT/SGPT 37 U/L (9-52); AST/SGOT 42 U/L (14-36); BLOOD UREA NITROGEN 11 mg/dL (7-17); CALCIUM 9.9 mg/dl (8.6-10.4); GFR NON-AFRICAN AMERICAN > 60
[2019-01-11 06:20] VITALS: BP 127/73; PULSE 79; RESP 18; TEMP 98.4; O2SAT 99
== END 2019-01-11 06:20 | disposition home or self-care (01) ==
LOC: C.ER 23:27
DX: F25.9 Schizoaffective disorder, unspecified (principal); Z72.0 Tobacco use; F31.9 Bipolar disorder, unspecified